=== PATIENT | female | born 1995 | race Caucasian/White ===

== ENCOUNTER 2020-04-03 20:02 | Emergency (ER) | payer OTHER ==
[2020-04-03 20:10] VITALS: BP 124/72
--- NOTE | 2020-04-03 20:37 | ED ---
General Adult HPI - General Source: patient Mode of arrival: ambulatory Limitations: no limitations <David Horta - Last Filed: 04/03/20 21:08> <Deb Talbot - Last Filed: 04/04/20 13:26> - General Chief complaint: Upper Respiratory Infection Stated complaint: Covid Symptoms Time Seen by Provider: 04/03/20 20:13 - History of Present Illness Initial comments: Patient is a 24-year-old female with history of asthma presenting to emergency Department with a chief complaint of upper respiratory symptoms. Patient states this started about 3 days ago with clear bilateral rhinorrhea and a sore throat. Patient reports that after she felt fatigued and some generalized weakness. States she also began having a nonproductive cough. She does report chills but denies any fevers. Does report taking [id number] cold and flu medication with no significant improvement in symptoms. 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 Yesterday she reports losing her sense of taste and smell. She denies any chest pain or shortness of breath (David Horta) - Related Data Allergies Allergy/AdvReac Type Severity Reaction Status Date / Time No Known Allergies Allergy Verified 04/03/20 20:10 Review of Systems ROS Other: All systems not noted in ROS Statement are negative. <David Horta - Last Filed: 04/03/20 21:08> ROS Other: All systems not noted in ROS Statement are negative. <Deb Talbot - Last Filed: 04/04/20 13:26> ROS Statement: Those systems with pertinent positive or pertinent negative responses have been documented in the HPI. Past Medical History Past Medical History: Asthma History of Any Multi-Drug Resistant Organisms: None Reported Past Surgical History: Appendectomy, Cholecystectomy, Tonsillectomy Past Psychological History: Depression Smoking Status: Never smoker Past Alcohol Use History: Occasional Past Drug Use History: None Reported <David Horta - Last Filed: 04/03/20 21:08> General Exam Limitations: no limitations General appearance: alert, in no apparent distress Head exam: Present: atraumatic, normocephalic, normal inspection Eye exam: Present: normal appearance, PERRL, EOMI Pupils: Present: normal accommodation ENT exam: Present: normal exam, normal oropharynx, mucous membranes moist, TM's normal bilaterally, normal external ear exam Neck exam: Present: normal inspection, full ROM. Absent: tenderness Respiratory exam: Present: normal lung sounds bilaterally. Absent: respiratory distress, wheezes, rales, rhonchi, stridor, chest wall tenderness Cardiovascular Exam: Present: regular rate, normal rhythm, normal heart sounds Extremities exam: Present: normal inspection, full ROM, normal capillary refill. Absent: tenderness Back exam: Present: normal inspection, full ROM. Absent: tenderness, CVA tenderness (R), CVA tenderness (L) Neurological exam: Present: alert, oriented X3, normal gait Psychiatric exam: Present: normal affect, normal mood Skin exam: Present: warm, dry, intact, normal color <David Horta - Last Filed: 04/03/20 21:08> Course Vital Signs 04/03/20 04/03/20 04/03/20 20:06 21:09 21:23 Temperature 98.0 F 98.4 F Pulse Rate 90 86 Respiratory 18 20 20 Rate Blood Pressure 124/72 O2 Sat by Pulse 100 100 Oximetry Medical Decision Making <David Horta - Last Filed: 04/03/20 21:08> <Deb Talbot - Last Filed: 04/04/20 13:26> - Medical Decision Making Patient is a 24-year-old female with history of asthma presenting to emergency department for upper respiratory symptoms. On physical examination, patient continues to have a dry cough. ENT examination unremarkable. Her lungs are clear to auscultation. X-rays unremarkable. Covert testing pending. She was advised self isolate for the next 48 hours until she receives the results of blood covert testing. She was advised to continue using her albuterol inhaler. She was also advised to take Tylenol if she develops a fever. Her vitals are stable. Strict return parameters were thoroughly discussed with patient is understanding and agreeable. Case discussed with physician. (David Horta) I was available for consultation in the emergency department. The history and physical exam were done by the midlevel provider. I was consulted for this patients care. I reviewed the case with the midlevel provider and based on their presentation of the patient, I agree with the assessment, medical decision making and plan of care as documented. Chart was dictated using [employer] dictation software. Attempts were made to correct any dictation errors however some typographical errors may persist. Patient was seen during a national state of emergency due to the Covid-19 pandemic. (Deb Talbot) Disposition Is patient prescribed a controlled substance at d/c from ED?: No Time of Disposition: 21:11 <David Horta - Last Filed: 04/03/20 21:08> <Deb Talbot - Last Filed: 04/04/20 13:26> Clinical Impression: Upper respiratory infection, Cough Disposition: HOME SELF-CARE Condition: Stable Instructions (If sedation given, give patient instructions): Upper Respiratory Infection (ED) Additional Instructions: Take Tylenol if he developed fever. Soft quarantine until you receive the results of Covid testing. Follow up with her primary care physician. Return to emergency department if symptoms worsen. Referrals: Avila Chacko MD [Primary Care Provider] - 1-2 days
--- NOTE | 2020-04-03 20:55 | XR ---
EXAMINATION TYPE: XR chest 1V portable DATE OF EXAM: 04/03/2020 COMPARISON: NONE HISTORY: Cough. Stuffy nose. TECHNIQUE: FINDINGS: Heart and mediastinum are normal. Lungs are clear. Diaphragm is normal. Bony thorax appears normal. IMPRESSION: Normal chest.
[2020-04-03 21:20] VITALS: RESP 20
[2020-04-03 21:27] VITALS: PULSE 86; TEMP 98.4
== END 2020-04-03 21:26 | disposition home or self-care (01) ==
LOC: EC 20:02
DX: J06.9 Acute upper respiratory infection, unspecified (principal); Z20.828 Contact with and (suspected) exposure to other viral communicable diseases; Z87.09 Personal history of other diseases of the respiratory system
CPT/HCPCS: 71045; 99285; U0003

== ENCOUNTER 2020-12-23 23:55 | Emergency (ER) | payer OTHER ==
[2020-12-24 00:12] VITALS: TEMP 98
[2020-12-24] MEDS ORDERED: MORPHINE SULFATE 4 MG/ML SYRINGE IV STA ×2 (00:32→02:24)
--- NOTE | 2020-12-24 01:42 | US ---
EXAM: US Pelvis Transvaginal and US Duplex Arterial/Venous of the Pelvis, Complete CLINICAL HISTORY: Pelvic pain. TECHNIQUE: Real-time transvaginal pelvic ultrasound with image documentation. Transvaginal imaging was used for better evaluation of the endometrium and adnexa. Real-time duplex ultrasound scan of the arterial and venous flow of the pelvis with color Doppler flow and spectral waveform analysis. COMPARISON: No previous study. FINDINGS: Uterus/cervix: The uterus measures 7.5 x 4.0 x 4.5 cm. Endometrial stripe measures 1.3 cm and is heterogeneous. No myometrial mass. Right ovary: Right ovary measures 2.8 x 1.6 x 1.8 cm. Good flow to both ovaries. No torsion. Left ovary: Left ovary measures 2.4 x 1.3 x 1.2 cm. Free fluid: Very minimal simple free fluid within the posterior cul-de- sac. Bladder: Empty bladder which cannot be evaluated with this probe. IMPRESSION: 1. Minimal thickening and heterogeneity of the endometrial stripe most likely related to phase of menstruation appeared 2. Good flow to both ovaries. 3. Very minimal free fluid within the posterior cul-de-sac.
[2020-12-24 01:55] LABS: Basophils # (A) 0.1 k/uL (0-0.2); Basophils % (A) 1 %; Eosinophils # (A) 0.2 k/uL (0-0.7); Eosinophils % (A) 3 %; HCT 40.8 % (34.0-46.0); HGB 13.5 gm/dL (11.4-16.0); Lymphocytes # (A) 2.1 k/uL (1.0-4.8); Lymphocytes % (A) 26 %; MCH 29.8 pg (25.0-35.0); MCHC 33.2 g/dL (31.0-37.0); MCV 89.7 fL (80.0-100.0); Mean Platelet Volume 9.7; Monocytes # (A) 0.4 k/uL (0-1.0); Monocytes % (A) 4 %; Neutrophils # (A) 5.3 k/uL (1.3-7.7); Neutrophils % (A) 65 %; Platelet Count 188 k/uL (150-450); RBC 4.55 m/uL (3.80-5.40); RDW 12.6 % (11.5-15.5); WBC 8.3 k/uL (3.8-10.6)
[2020-12-24 02:08] LABS: ALT 12 U/L (4-34); AST 20 U/L (14-36); African American GFR (CKD) >90 (>60 ml/min/1.73 sqM); Albumin 4.9 g/dL (3.5-5.0); Alkaline Phosphatase 62 U/L (38-126); Amylase 55 U/L (30-110); Anion Gap 9 mmol/L; Blood Urea Nitrogen 8 mg/dL (7-17); Carbon Dioxide 27 mmol/L (22-30); Chloride 103 mmol/L (98-107); Glucose 98 mg/dL (74-99); Lipase 104 U/L (23-300); Non-African American GFR(CKD) >90 (>60 ml/min/1.73 sqM); Sodium 139 mmol/L (137-145); Total Bilirubin 0.2 mg/dL (0.2-1.3); Total Protein 7.2 g/dL (6.3-8.2)
[2020-12-24 02:15] LABS: Appearance,Urine Clear (Clear); Bilirubin,Urine Negative (Negative); Blood,Urine Small (Negative); Color,Urine Colorless; Glucose,Urine (UA) Negative (Negative); Ketones,Urine Negative (Negative); Leukocyte Esterase,Urine Negative (Negative); Nitrite,Urine Negative (Negative); PH, Urine 6.5 (5.0-8.0); Protein,Urine Negative (Negative); RBC,Urine 1 /hpf (0-5); Specific Gravity,Urine 1.004 (1.001-1.035); Squamous Epithelial Cell,Urine 1 /hpf (0-4); Urobilinogen,Urine <2.0 mg/dL (<2.0); WBC,Urine 1 /hpf (0-5)
--- NOTE | 2020-12-24 02:27 | ED ---
Female Urogenital HPI - General Chief complaint: Vaginal Bleeding Stated complaint: Lower abd pain Time Seen by Provider: 12/24/20 00:17 Source: patient Mode of arrival: ambulatory Limitations: no limitations - History of Present Illness Initial comments: Patient is 25-year-old woman presenting with complaint that she feels like she is having a second menstrual period this month which would be greatly abnormal for her. She started having lower abdomen and low back cramps as well as vaginal bleeding. She states she was concerned because the bleeding appeared to be bright red. Patient had called her primary mill roller Dr. Jacobs, who was going to have her in for ultrasound but then her cramping had worsened tonight. Patient states no risk factors for STI. The symptoms did worsen after intercourse MD Complaint: vaginal bleeding Onset/Timin -: days(s) Location: suprapubic Radiation: non-radiating Severity: mild Quality: cramping Consistency: constant Improves with: none Worsens with: none Last Menstrual Period: 12/07/20 Patient : No Associated Symptoms: vaginal bleeding - Related Data Previous Rx's Medication Instructions Recorded HYDROcodone/APAP 5-325MG [[place] 1 tab PO Q6HR PRN 3 Days #12 tab 12/24/20 5-325] Allergies Allergy/AdvReac Type Severity Reaction Status Date / Time No Known Allergies Allergy Verified 12/24/20 00:12 Review of Systems ROS Statement: Those systems with pertinent positive or pertinent negative responses have been documented in the HPI. ROS Other: All systems not noted in ROS Statement are negative. Constitutional: Denies: fever, chills Respiratory: Denies: cough, dyspnea Cardiovascular: Denies: chest pain, palpitations Gastrointestinal: Reports: abdominal pain. Denies: nausea, vomiting, diarrhea, constipation Genitourinary: Reports: abnormal menses. Denies: dysuria, hematuria, discharge Musculoskeletal: Denies: back pain Skin: Denies: rash Neurological: Denies: headache, weakness, numbness Past Medical History Past Medical History: Asthma History of Any Multi-Drug Resistant Organisms: None Reported Past Surgical History: Appendectomy, Cholecystectomy, Tonsillectomy Past Psychological History: Depression Smoking Status: Never smoker Past Alcohol Use History: Occasional Past Drug Use History: None Reported General Exam Limitations: no limitations General appearance: alert, in no apparent distress Head exam: Present: atraumatic, normocephalic Eye exam: Present: normal appearance Respiratory exam: Present: normal lung sounds bilaterally. Absent: respiratory distress, wheezes, rales, rhonchi, stridor Cardiovascular Exam: Present: regular rate, normal rhythm, normal heart sounds. Absent: systolic murmur, diastolic murmur, rubs, gallop GI/Abdominal exam: Present: soft. Absent: distended, tenderness, guarding, durga ound, rigid, organomegaly, mass External exam: Present: normal external exam Speculum exam: Present: normal speculum exam. Absent: erythema, vaginal discharge, cervical discharge, vaginal bleeding By manual exam: Present: normal by manual exam. Absent: cervical motion tenderness, adnexal tenderness, adnexal mass, uterine enlargement, uterine tenderness Extremities exam: Present: normal inspection, normal capillary refill. Absent: pedal edema, calf tenderness Back exam: Present: normal inspection. Absent: CVA tenderness (R), CVA tenderness (L) Neurological exam: Present: alert Skin exam: Present: warm, dry, intact, normal color. Absent: rash Course Vital Signs 12/24/20 12/24/20 00:10 02:46 Temperature 98.0 F Pulse Rate 94 82 Respiratory 18 16 Rate Blood Pressure 146/92 132/72 O2 Sat by Pulse 100 100 Oximetry Medical Decision Making - Medical Decision Making Patient is 25-year-old woman presenting for evaluation of low abdominal cramping and vaginal bleeding. On the exam, there is no active cervical bleeding. Small amount of dark blood present. The patient declined empiric STI treatment, stating she is going to follow with Dr. Jacobs and in addition she does not believe she has any current risk factors for STI. - Lab Data Result diagrams: 12/24/20 01:33 12/24/20 01:33 Lab Results 12/24/20 12/24/20 12/24/20 Range/Units 01:33 01:33 01:33 WBC 8.3 (3.8-10.6) k/uL RBC 4.55 (3.80-5.40) m/uL Hgb 13.5 (11.4-16.0) gm/dL Hct 40.8 (34.0-46.0) % MCV 89.7 (80.0-100.0) fL MCH 29.8 (25.0-35.0) pg MCHC 33.2 (31.0-37.0) g/dL RDW 12.6 (11.5-15.5) % Plt Count 188 (150-450) k/uL MPV 9.7 Neutrophils % 65 % Lymphocytes % 26 % Monocytes % 4 % Eosinophils % 3 % Basophils % 1 % Neutrophils # 5.3 (1.3-7.7) k/uL Lymphocytes # 2.1 (1.0-4.8) k/uL Monocytes # 0.4 (0-1.0) k/uL Eosinophils # 0.2 (0-0.7) k/uL Basophils # 0.1 (0-0.2) k/uL Sodium (137-145) mmol/L Potassium (3.5-5.1) mmol/L Chloride (98-107) mmol/L Carbon Dioxide (22-30) mmol/L Anion Gap mmol/L BUN (7-17) mg/dL Creatinine (0.52-1.04) mg/dL Est GFR (CKD-EPI)AfAm (>60 ml/min/1.73 sqM) Est GFR (CKD-EPI)NonAf (>60 ml/min/1.73 sqM) Glucose (74-99) mg/dL Plasma Lactic Acid Francisco (0.7-2.0) mmol/L Calcium (8.4-10.2) mg/dL Total Bilirubin (0.2-1.3) mg/dL AST (14-36) U/L ALT (4-34) U/L Alkaline Phosphatase (38-126) U/L Total Protein (6.3-8.2) g/dL Albumin (3.5-5.0) g/dL Amylase (30-110) U/L Lipase (23-300) U/L Urine Color Colorless Urine Appearance Clear (Clear) Urine pH 6.5 (5.0-8.0) Ur Specific [place] 1.004 (1.001-1.035) Urine Protein Negative (Negative) Urine Glucose (UA) Negative (Negative) Urine Ketones Negative (Negative) Urine Blood Small H (Negative) Urine Nitrite Negative (Negative) Urine Bilirubin Negative (Negative) Urine Urobilinogen <2.0 (<2.0) mg/dL Ur Leukocyte Esterase Negative (Negative) Urine RBC 1 (0-5) /hpf Urine WBC 1 (0-5) /hpf Ur Squamous Epith Cells 1 (0-4) /hpf Urine HCG, Qual Not Detected (Not Detectd) 12/24/20 12/24/20 Range/Units 01:33 01:33 WBC (3.8-10.6) k/uL RBC (3.80-5.40) m/uL Hgb (11.4-16.0) gm/dL Hct (34.0-46.0) % MCV (80.0-100.0) fL MCH (25.0-35.0) pg MCHC (31.0-37.0) g/dL RDW (11.5-15.5) % Plt Count (150-450) k/uL MPV Neutrophils % % Lymphocytes % % Monocytes % % Eosinophils % % Basophils % % Neutrophils # (1.3-7.7) k/uL Lymphocytes # (1.0-4.8) k/uL Monocytes # (0-1.0) k/uL Eosinophils # (0-0.7) k/uL Basophils # (0-0.2) k/uL Sodium 139 (137-145) mmol/L Potassium 4.0 (3.5-5.1) mmol/L Chloride 103 (98-107) mmol/L Carbon Dioxide 27 (22-30) mmol/L Anion Gap 9 mmol/L BUN 8 (7-17) mg/dL Creatinine 0.57 (0.52-1.04) mg/dL Est GFR (CKD-EPI)AfAm >90 (>60 ml/min/1.73 sqM) Est GFR (CKD-EPI)NonAf >90 (>60 ml/min/1.73 sqM) Glucose 98 (74-99) mg/dL Plasma Lactic Acid Francisco <0.5 L (0.7-2.0) mmol/L Calcium 10.0 (8.4-10.2) mg/dL Total Bilirubin 0.2 (0.2-1.3) mg/dL AST 20 (14-36) U/L ALT 12 (4-34) U/L Alkaline Phosphatase 62 (38-126) U/L Total Protein 7.2 (6.3-8.2) g/dL Albumin 4.9 (3.5-5.0) g/dL Amylase 55 (30-110) U/L Lipase 104 (23-300) U/L Urine Color Urine Appearance (Clear) Urine pH (5.0-8.0) Ur Specific [place] (1.001-1.035) Urine Protein (Negative) Urine Glucose (UA) (Negative) Urine Ketones (Negative) Urine Blood (Negative) Urine Nitrite (Negative) Urine Bilirubin (Negative) Urine Urobilinogen (<2.0) mg/dL Ur Leukocyte Esterase (Negative) Urine RBC (0-5) /hpf Urine WBC (0-5) /hpf Ur Squamous Epith Cells (0-4) /hpf Urine HCG, Qual (Not Detectd) Disposition Clinical Impression: Vaginal bleeding Disposition: HOME SELF-CARE Condition: Good Instructions (If sedation given, give patient instructions): Dysfunctional Uter ine Bleeding (ED), Pelvic Pain in Women (ED) Prescriptions: HYDROcodone/APAP 5-325MG [[place] 5-325] 1 tab PO Q6HR PRN 3 Days #12 tab PRN Reason: Pain Is patient prescribed a controlled substance at d/c from ED?: No Referrals: None,Stated [Primary Care Provider] - 1-2 days
[2020-12-24 02:46] VITALS: BP 132/72; PULSE 82; RESP 16
== END 2020-12-24 02:50 | disposition home or self-care (01) ==
LOC: EC 23:55
DX: N93.9 Abnormal uterine and vaginal bleeding, unspecified (principal); R10.30 Lower abdominal pain, unspecified; J45.909 Unspecified asthma, uncomplicated; F32.9 Major depressive disorder, single episode, unspecified
CPT/HCPCS: 36415; 80053; 82150; 83605; 83690; 85025; 81001; 81025; 87491; 87591; 93975; 76830; 99284; 96374; 96376; J2270

== ENCOUNTER → 2020-12-28 | Outpatient (CLI) | payer OTHER ==
--- NOTE | 2020-12-28 15:40 | US ---
EXAMINATION TYPE: US pelvic complete DATE OF EXAM: 12/28/2020 COMPARISON: 12/24/2020 CLINICAL HISTORY: N93.0Postcoital and contact ble, R10.2 pelvic pain. pain and bleeding during and af ter intercourse, TECHNIQUE: OBTA. Transabdominal sonographic images of the pelvis were acquired. Transvaginal sonog raphic images were medically necessary to better assess the following anatomy: offered, patient refus ed Date of LMP: 12/08/2020 EXAM MEASUREMENTS: Uterus: 8.0 x 5.7 x 4.5 cm Endometrial Stripe: 1.0 cm Right Ovary: 3.2 x 2.1 x 1.4 cm Left Ovary: 3.1 x 2.0 x 2.9 cm 1. Uterus: Retroverted wnl 2. Endometrium: wnl 3. Right Ovary: wnl 4. Left Ovary: wnl 5. Bilateral Adnexa: wnl 6. Posterior cul-de-sac: free fluid IMPRESSION: Free fluid in the pelvis is likely physiologic.
== END | disposition home or self-care (01) ==
LOC: RADUSWWP 14:16
PROVIDERS: ATTEND Obstetrics & Gynecology
DX: N93.0 Postcoital and contact bleeding (principal)
CPT/HCPCS: 76856

== ENCOUNTER 2021-11-08 05:39 | Inpatient (IN) | payer OTHER ==
--- NOTE | 2021-11-07 12:35 | P.HPOB ---
History of Present Illness H&P Date: 11/07/21 Chief Complaint: Requested induction of labor. This patient is a pleasant 26-year-old 4 para 2 female estimated date of confinement 11/10/2021 estimated gestational age 39-5/7 weeks who presents to labor and delivery for requested induction of labor. Patient's care was initially with Dr. Royal however she transferred to sd at 31 weeks after his departure. Patient's care has been uncomplicated however she did have cCOVID at 13 weeks. Patient also has had growth ultrasounds which shows macrosomia. Most recent ultrasound showed the baby 9 lbs. 1 oz. Patient and I discussed the size of the baby and I did discuss optional with her however she has had a previous baby that was 9-1/2 pounds and had no problems with this delivery. Patient has declined section and desires induction at this time. Review of Systems Genitourinary: Reports Menstruation: Reports amenorrhea Past Medical History Past Medical History: Asthma History of Any Multi-Drug Resistant Organisms: None Reported Past Surgical History: Appendectomy, Cholecystectomy, Tonsillectomy Past Anesthesia/Blood Transfusion Reactions: No Reported Reaction Past Psychological History: Depression Smoking Status: Never smoker Past Alcohol Use History: Occasional Past Drug Use History: None Reported Medications and Allergies Home Medications Medication Instructions Recorded Confirmed Type HYDROcodone/APAP 5-325MG [[place] 1 tab PO Q6HR PRN 3 Days #12 tab 12/24/20 Rx 5-325] Allergies Allergy/AdvReac Type Severity Reaction Status Date / Time No Known Allergies Allergy Verified 12/24/20 00:12 Exam - OBG Physical Exam Abdomen: bowel sounds normal, no diffuse tenderness, no bruit present, no guarding noted, no hepatomegaly, no splenomegaly, no mass Vulva: both: normal Vagina: normal moisture, no discharge Cervix: no lesion (Cervix the office is 1 cm and thick.), no discharge Uterus: enlarged (Fundal height 40 cm) Results labs show she is oh positive, rubella immune, RPR nonreactive, hepatitis B is negative, HIV is nonreactive, Glucola was normal, most recent ultrasound showed the baby 9 lbs. 1 oz. Group B strep was positive. Assessment and Plan Assessment: This patient is a pleasant 26-year-old 4 para 2 female estimated gestational age 39-5/7 weeks' gestation who is admitted to labor and delivery for requested induction of labor. Estimated weight is approximately 9 and 9-1/2 pounds and I did discuss optional with this patient due to macrosomia however she's had a previous baby in this way range within delivered without a problem and has declined section. She does wish to proceed with induction. She also has a positive group B strep culture. Plan is antibiotic prophylaxis and Pitocin induction of labor per protocol. We anticipate vaginal delivery (1) 39 weeks gestation of Status: Acute Code(s): Z3A.39 - 39 WEEKS GESTATION OF SNOMED Code(s): 54049104 (2) macrosomia Status: Acute Code(s): O36.60X0 - MATERNAL CARE FOR EXCESS GROWTH, UNSP TRIMESTER, UNSP SNOMED Code(s): 56060227 (3) Group B streptococcal carriage complicating Status: Acute Code(s): O99.820 - STREPTOCOCCUS B CARRIER STATE COMPLICATING SNOMED Code(s): 266269821881936 (4) Elective induction of labor planned Status: Acute Code(s): QIG5587 - SNOMED Code(s): 114453726
[2021-11-08] MEDS ORDERED: TERBUTALINE 1 MG/ML VIAL SQ PRN (05:53)
[2021-11-08] MEDS ORDERED: OXYTOCIN 10 UNIT/ML 1 ML VIAL IM PRN (05:53)
[2021-11-08] MEDS ORDERED: METHYLERGONOVINE 0.2 MG/ML 1 ML AMP IM PRN (05:53)
[2021-11-08] MEDS ORDERED: CARBOPROST TROMETHAMINE 250 MCG/ML 1 ML AMP IM PRN (05:53)
[2021-11-08] MEDS ORDERED: LIDOCAINE 1% (PF) 10 MG/ML (30 ML SDV) SQ PRN (05:53)
[2021-11-08] MEDS ORDERED: AMPICILLIN 2,000 MG in SODIUM CHLORIDE 0.9% 100 ML IVPB STA (05:53)
[2021-11-08] MEDS ORDERED: OXYTOCIN 30 UNITS/500 ML NS 30 UNIT in SALINE 1 500ML.BAG IV SCH (05:53)
[2021-11-08 06:12] LABS: Basophils # (A) 0.1 k/uL (0-0.2); Basophils % (A) 1 %; Eosinophils # (A) 0.2 k/uL (0-0.7); Eosinophils % (A) 2 %; HCT 37.9 % (34.0-46.0); HGB 12.3 gm/dL (11.4-16.0); Lymphocytes # (A) 1.5 k/uL (1.0-4.8); Lymphocytes % (A) 18 %; MCH 30.1 pg (25.0-35.0); MCHC 32.4 g/dL (31.0-37.0); Mean Platelet Volume 10.5; Monocytes # (A) 0.5 k/uL (0-1.0); Monocytes % (A) 6 %; Neutrophils # (A) 6.3 k/uL (1.3-7.7); Neutrophils % (A) 72 %; Platelet Count 155 k/uL (150-450); RBC 4.08 m/uL (3.80-5.40); RDW 12.5 % (11.5-15.5); WBC 8.7 k/uL (3.8-10.6)
[2021-11-08] MEDS: LACTATED RINGERS 1,000 ML IV SCH ×3 (06:16→15:01)
[2021-11-08] MEDS ORDERED: BUTORPHANOL 1 MG/ML 1 ML VIAL IV PRN (09:41)
[2021-11-08] MEDS: AMPICILLIN 1,000 MG in SODIUM CHLORIDE 0.9% 50 ML IVPB SCH ×2 (10:39→14:52)
[2021-11-08] MEDS ORDERED: ROPIVACAINE 100 MG, fentaNYL (PF). 200 MCG in SODIUM CHLORIDE 0.9% 76 ML EPIDURAL ONE (12:37)
[2021-11-08] MEDS: OXYTOCIN 30 UNITS/500 ML NS 30 UNIT in SALINE 1 500ML.BAG IV SCH ×2 (17:26→18:07)
[2021-11-08] MEDS ORDERED: LANOLIN CREAM 5 GM TUBE TOPICAL PRN (17:34)
[2021-11-08] MEDS ORDERED: BENZOCAINE/MENTHOL SPRAY 1 GM/SPRAY AEROSOL TOPICAL PRN (17:34)
[2021-11-08] MEDS ORDERED: HYDROCORTISONE 2.5% RECTAL CREAM 30 GM TUBE RECTAL PRN (17:34)
[2021-11-08] MEDS ORDERED: diphenhydrAMINE 50 MG/ML 1 ML VIAL IVP PRN (17:34)
[2021-11-08] MEDS ORDERED: SIMETHICONE 80 MG CHEWABLE PO PRN (17:34)
[2021-11-08] MEDS ORDERED: ZOLPIDEM 5 MG TAB PO PRN (17:34)
[2021-11-08] MEDS ORDERED: diphenhydrAMINE 25 MG CAP PO PRN (17:34)
[2021-11-08] MEDS ORDERED: bisacodyL 10 MG SUPP RECTAL PRN (17:34)
--- NOTE | 2021-11-08 17:55 | P.PROBDLV ---
Vaginal Delivery Note - . Vaginal Delivery Note: Normal vaginal delivery viable male infant Apgars 8 and 9 delivery time is 1722 hrs. Please see dictated H&P for intimate details of this patient's admission. Brief summary this is a pleasant 26-year-old 4 para 2 female estimated gestational age 39-5/7 weeks who presents to labor and delivery for requested induction of labor. On admission patient is 2 cm dilated has artificial rupture membranes for clear fluid. Labor is induced with Pitocin per protocol. Patient's labor progresses and she does get a dose of Stadol and then an epidural for pain control. Patient also received antibiotics in labor due to positive group B strep culture. Patient progressed and was 6 cm for a bit but then rapidly progressed to complete. Patient pushes the head to the perineum approximately 5 times and pushed the head over top of the intact perineum. Mouth and nares are bulb suctioned. Infant's head is straight occiput anterior presentation. There is a nuchal cord which is easily reduced. With gentle downward traction we then have delivery the anterior and posterior shoulder and rest this 's body. This is a vigorous viable male infant Apgars are 8 and 9 delivery time is 1722 hrs. After delivery of the , the infant is laid on the mother's abdomen. After the cord is done pulsating is doubly clamped and then cut. It appears to be trivascular. The placenta is then spontaneously delivered intact. Estimated blood loss is approximately 200 mL. Inspection of the perineum shows a second-degree laceration midline. She did get boggy and therefore I gave her a bolus of Pitocin and one dose of Methergine. This appeared to stop the bleeding. The second-degree laceration is then repaired with 3-0 Vicryl in the usual fashion excellent reapproximation is noted. All counts are correct 3. There are no complications. Infant and mother stable delivery room.
[2021-11-08] MEDS: IBUPROFEN 600 MG TAB PO PRN (18:17)
[2021-11-08] MEDS: SENNOSIDES-DOCUSATE SODIUM 1 EACH TAB PO SCH (18:18)
[2021-11-08] MEDS: ACETAMINOPHEN TAB 325 MG TAB PO PRN (22:02)
[2021-11-09] MEDS: IBUPROFEN 600 MG TAB PO PRN ×3 (00:33→16:00)
[2021-11-09] MEDS: ACETAMINOPHEN TAB 325 MG TAB PO PRN ×2 (05:13→12:07)
--- NOTE | 2021-11-09 06:10 | P.PNOBGVD ---
Subjective - Subjective Patient reports: Reports appetite normal, Reports voiding normally, Reports pain well controlled, Reports ambulating normally : doing well Objective - Latest Vital Signs Latest vital signs: Vital Signs Temp Pulse Resp BP Pulse Ox 11/09/21 04:25 97.7 F 80 16 119/77 98 11/09/21 00:00 97.4 F L 92 16 113/73 11/08/21 20:00 80 16 115/58 11/08/21 19:46 97.7 F 80 16 115/58 11/08/21 19:16 97.7 F 84 16 118/55 11/08/21 19:00 78 16 119/58 11/08/21 18:46 71 16 112/57 11/08/21 18:31 69 16 110/61 11/08/21 18:18 79 16 103/60 11/08/21 18:01 70 16 111/55 11/08/21 17:46 72 16 101/55 Intake and Output 11/08/21 11/08/21 11/09/21 14:59 22:59 06:59 Intake Total 1200 740.317 Output Total 1276 Balance 1200 -535.683 Intake: IV 1200 Intake, IV Titration 740.317 Amount Oxytocin 30 Units/500 ml 23.867 Ns 30 unit In Saline 1 500ml.bag @ Per Protocol IV .Q0M DELILAH Rx#:[id number] Oxytocin 30 Units/500 ml 716.450 Ns 30 unit In Saline 1 500ml.bag @ Per Protocol IV .Q0M DELILAH Rx#:[id number] Output: Urine 250 Estimated Blood Loss 200 Output, Quantitative 826 Blood Loss Other: # Voids 1 1 - Exam Lungs: bilateral: normal Chest: Normal S1, Normal S2 Extremities: Present: normal Abdomen: Present: normal appearance, soft Uterus: Present: normal, firm Assessment and Plan Assessment: day #1. Patient is resting without complaints and wishes to go home. Vital signs are stable and she is afebrile. Uterus is firm nontender and she is having normal lochia. My impression this is a normal course. Plan is to continue routine care and discharge home later today (1) 39 weeks gestation of Current Visit: No Status: Acute Code(s): Z3A.39 - 39 WEEKS GESTATION OF SNOMED Code(s): 56379403 (2) macrosomia Current Visit: No Status: Acute Code(s): O36.60X0 - MATERNAL CARE FOR EXCESS GROWTH, UNSP TRIMESTER, UNSP SNOMED Code(s): 77047645 (3) Group B streptococcal carriage complicating Current Visit: No Status: Acute Code(s): O99.820 - STREPTOCOCCUS B CARRIER STATE COMPLICATING SNOMED Code(s): 038574260775486 (4) Elective induction of labor planned Current Visit: No Status: Acute Code(s): OFB6369 - SNOMED Code(s): 838895338
--- NOTE | 2021-11-09 06:16 | P.DS ---
Providers Date of admission: 11/08/21 05:39 Expected date of discharge: 11/09/21 Attending physician: Polo Barahona Primary care physician: Stated None - Discharge Diagnosis(es) (1) 39 weeks gestation of Current Visit: No Status: Acute (2) macrosomia Current Visit: No Status: Acute (3) Group B streptococcal carriage complicating Current Visit: No Status: Acute (4) Elective induction of labor planned Current Visit: No Status: Acute Hospital Course: Please see dictated H&P for intimate details of this patient's admission. Brief summary this is a pleasant 26-year-old 4 para 2 female estimated gestational age 39-5/7 weeks who presents to labor and delivery for requested induction of labor. Patient is uncomplicated induction of labor goes on to have a vaginal delivery viable male . Please see dictated delivery note of note patient's weight was 9 lbs. 12 oz. Patient had brief uterine atony which responded to Methergine otherwise normal lochia. day 1 patient's feeling well she wishes to go home. Patient's felt be stable for discharge home follow up with me in 6 weeks. Procedures: Induction of labor normal vaginal delivery Plan - Discharge Summary New Discharge Prescriptions: New Ibuprofen [Motrin] 600 mg PO Q6HR PRN #30 tab PRN Reason: Mild Pain (Scale 1 To 3) No Action Pnv,Calcium 72/Iron/Folic Acid [ Plus Tablet] 1 each PO DAILY Discharge Medication List Pnv,Calcium 72/Iron/Folic Acid [ Plus Tablet] 1 each PO DAILY 11/08/21 [History] Ibuprofen [Motrin] 600 mg PO Q6HR PRN #30 tab 11/09/21 [Rx] Follow up Appointment(s)/Referral(s): Polo Barahona MD [STAFF PHYSICIAN] - 12/22/21 3:00 pm Patient Instructions/Handouts: Vaginal Delivery (DC) Activity/Diet/Wound Care/Special Instructions: No intercourse or anything per vagina for 6 weeks. Please call if any fever, chills, excessive vaginal bleeding, and/or abdominal pain Discharge Disposition: HOME SELF-CARE
[2021-11-09 07:40] LABS: Basophils % (A) 0 %; Eosinophils # (A) 0.1 k/uL (0-0.7); Eosinophils % (A) 2 %; HCT 30.6 % (34.0-46.0); HGB 10.1 gm/dL (11.4-16.0); Lymphocytes # (A) 1.3 k/uL (1.0-4.8); Lymphocytes % (A) 15 %; MCH 31.7 pg (25.0-35.0); MCV 96.1 fL (80.0-100.0); Mean Platelet Volume 10.7; Monocytes # (A) 0.5 k/uL (0-1.0); Monocytes % (A) 6 %; Neutrophils # (A) 7.1 k/uL (1.3-7.7); Neutrophils % (A) 77 %; Platelet Count 131 k/uL (150-450); RBC 3.18 m/uL (3.80-5.40); RDW 12.6 % (11.5-15.5); WBC 9.2 k/uL (3.8-10.6)
[2021-11-09] MEDS: SENNOSIDES-DOCUSATE SODIUM 1 EACH TAB PO SCH (08:49)
[2021-11-09 10:41] VITALS: RESP 18
[2021-11-09 16:34] VITALS: BP 110/69; PULSE 69; TEMP 97.9
== END 2021-11-09 18:10 | disposition home or self-care (01) | DRG 807 ==
LOC: 4FBP 05:39
PROVIDERS: ADMIT Obstetrics & Gynecology; ATTEND Obstetrics & Gynecology
PROC: 10E0XZZ Delivery of Products of Conception, External Approach (ICD-10-PCS; principal; 2021-11-08)
PROC: 0KQM0ZZ Repair Perineum Muscle, Open Approach (ICD-10-PCS; 2021-11-08)
PROC: 10907ZC Drainage of Amniotic Fluid, Therapeutic from Products of Conception, Via Natural or Artificial Opening (ICD-10-PCS; 2021-11-08)
PROC: 3E033VJ Introduction of Other Hormone into Peripheral Vein, Percutaneous Approach (ICD-10-PCS; 2021-11-08)
PROC: 4A0HXCZ Measurement of Products of Conception, Cardiac Rate, External Approach (ICD-10-PCS; 2021-11-08)
DX: O36.63X0 Maternal care for excessive fetal growth, third trimester, not applicable or unspecified (principal); Z37.0 Single live birth; O99.824 Streptococcus B carrier state complicating childbirth; O70.1 Second degree perineal laceration during delivery; O69.81X0 Labor and delivery complicated by cord around neck, without compression, not applicable or unspecified; F32.A Depression, unspecified; J45.909 Unspecified asthma, uncomplicated; O62.2 Other uterine inertia; O99.344 Other mental disorders complicating childbirth; O99.52 Diseases of the respiratory system complicating childbirth; Z3A.39 39 weeks gestation of pregnancy; Z90.49 Acquired absence of other specified parts of digestive tract
CPT/HCPCS: 85025; 86850; 86900; 86901

== ENCOUNTER 2022-02-13 06:15 | Day surgery (SDC) | payer OTHER ==
[2022-02-08 13:03] VITALS: BMI 28.6
--- NOTE | 2022-02-12 07:57 | P.HPOB ---
History of Present Illness H&P Date: 02/12/22 Chief Complaint: Desires permanent sterilization This patient is a pleasant 26 yr female who is status post vaginal delivery of her 3rd baby this year who requests laparoscopic bilateral fallopian tube cauterization for permanent sterilization. I have discussed all other options with her including male sterilization and this is the method she has chosen. Past Medical History Past Medical History: Asthma, GERD/Reflux, Liver Disease Additional Past Medical History / Comment(s): Hx Hepatitis C 2017. History of Any Multi-Drug Resistant Organisms: None Reported Past Surgical History: Appendectomy, Cholecystectomy, Tonsillectomy Past Anesthesia/Blood Transfusion Reactions: No Reported Reaction, Motion Sickness Past Psychological History: Anxiety, Depression Smoking Status: Never smoker Past Alcohol Use History: Occasional Additional Past Alcohol Use History / Comment(s): Quit vaping a yr ago. Past Drug Use History: Marijuana Additional Drug Use History / Comment(s): Occassional edible, aware no use 24 hrs prior to procedure. - Past Family History Daughter(s) Family Medical History: No Reported History Medications and Allergies Home Medications Medication Instructions Recorded Confirmed Type Vit No.180/Iron/Folic 1 each PO DAILY 11/08/21 02/08/22 History [ Plus Tablet] Allergies Allergy/AdvReac Type Severity Reaction Status Date / Time No Known Allergies Allergy Verified 02/08/22 12:54 Exam - OBG Physical Exam Abdomen: bowel sounds normal, no diffuse tenderness, no bruit present, no guarding noted, no hepatomegaly, no splenomegaly, no mass Vulva: both: normal Vagina: normal moisture, no discharge Cervix: no lesion, no discharge Uterus: normal size, normal contour Assessment and Plan Assessment: This is a pleasant 26 yr female who presents requesting permanent sterilization. Plan is laparoscopic bilateral fallopian tube cauterization. I have discussed this procedure with Arielle including the fact that it is considered permanent, however there is a failure rate of <11/999. If she did become a ~50% chance of a tubal/ectopic . She understands the risks of the procedure: infection, bleeding, possible injury to bowel/bladder/vessels and/or other organs. She understand that she is at increase risk due to history of previous laparoscopic procedures. She also understands that this procedure is elective and other options exist. All of her questions were answered and a written consent obtained. (1) Family planning Status: Acute Code(s): Z30.09 - ENCOUNTER FOR OTH GENERAL CNSL AND ADVICE ON CONTRACEPTION SNOMED Code(s): 069192771
[~2022-02-13 06:15] MED LIST: DEXAMETHASONE SOD PHOSPHATE 4 MG/ML 1 ML VIAL IV ONE; LACTATED RINGERS 1,000 ML IV SCH; LIDOCAINE 1% (10MG/ML) FOR IV START INTRADERMA PRN; ONDANSETRON 4 MG/2 ML VIAL IVP ONE; Pre Op ABX Message 1 EACH MISC MISCELLANE ONE; SCOPOLAMINE 1 MG/72 HR PATCH TRANSDERM ONE
[2022-02-13] MEDS ORDERED: HYDROmorphone 0.5 MG/0.5 ML SYRINGE IVP PRN (07:00)
[2022-02-13] MEDS ORDERED: HYDROmorphone (PF) 1 MG/ML ONE (07:22)
[2022-02-13] MEDS ORDERED: GLYCOPYRROLATE 0.2 MG/ML 2 ML VIAL ONE (07:22)
[2022-02-13] MEDS ORDERED: LIDOCAINE 2% INJ 20 MG/ML (2 ML VIAL) ONE (07:22)
[2022-02-13] MEDS ORDERED: SUCCINYLCHOLINE CHLORIDE 200 MG/10 ML VIAL IV ONE (07:22)
[2022-02-13] MEDS ORDERED: fentaNYL (PF) 50 MCG/ML 2 ML AMP ONE (07:22)
[2022-02-13] MEDS ORDERED: KETOROLAC 15 MG/ML 1 ML VIAL ONE (07:22)
[2022-02-13] MEDS ORDERED: MIDAZOLAM 2 MG/2 ML VIAL ONE (07:22)
[2022-02-13] MEDS ORDERED: NEOSTIGMINE 1 MG/ML 10 ML VIAL ONE (07:22)
[2022-02-13] MEDS ORDERED: PROPOFOL 10 MG/ML 20 ML VIAL IV ONE (07:22)
[2022-02-13] MEDS ORDERED: ROCURONIUM 10 MG/ML (5 ML VIAL) IV ONE (07:22)
[2022-02-13] MEDS ORDERED: BUPIVACAINE (PF) 0.5% 30 ML VIAL SQ ONE ×2 (07:58)
[2022-02-13] MEDS ORDERED: LACTATED RINGERS 1,000 ML IV ONE (08:04)
--- NOTE | 2022-02-13 08:14 | P.OP ---
Date of Procedure: 02/13/22 Preoperative Diagnosis: Multi parity desires permanent sterilization Postoperative Diagnosis: Same Procedure(s) Performed: Laparoscopic bilateral fallopian tube cauterization Anesthesia: LUCIENA Surgeon: Polo Barahona Estimated Blood Loss (ml): 10 Urine output (ml): 20 Pathology: none sent Condition: stable Disposition: PACU Indications for Procedure: Please see dictated H&P for intimate details of this patient's admission. Brief summary this pleasant 26-year-old multiparous patient status post vaginal deliveries third viable infant earlier this year who is requesting permanent sterilization for control. Patient I discussed options for control and this is enough that she and her partner chosen. She understands it is considered permanent however there is a failure rate of less than 5 per thousand procedures done. She understands if she does become she is a 50% chance of a tubal or an ectopic . Patient also understands that surgery itself and apparently has risks: Risks of infection, bleeding, possible injury bowel, bladder, vessels, and/or other organs. All the patient's questions are answered and a written consent is obtained. Operative Findings: This patient normal appearing pelvis Description of Procedure: This patient is taken to the operating room where she is laid in the supine position. She subsequently undergoes general endotracheal anesthesia without incident. An adequate level of anesthesia she's placed in the dorsal lithotomy position. His vaginal, perineal, abdominal prep and drape. First good on below placed a speculum into the vagina and visualize the cervix. An Allis clamp was attached to the anterior lip of the cervix and acorn cannula is attached to the Allis clamp and placed into the endocervix. The bladder is then drained for clear urine and this catheter is attached to the Allis clamp. I then changed gloves and go above. I make a 1 cm infraumbilical incision. Through this a 10 mm bladed lists optical trochars placed under visualization. With peritoneal placement confirmed pneumoperitoneum is created to 12 mm of carbon dioxide gas. Patient placed in some Trendelenburg. Approximately 2 finger breaths above the symphysis pubis a 5 mm incision made and a 5 mm bladed lists trochar placed under direct visualization. Using a blunt probe I visualize the uterus fallopian tubes and ovaries the pelvis and all appears normal. Using bipolar cautery then grasped the left fallopian tube approximately 4 cm from its cornual Oxleyinsertion in 1-2 cm segment of the tube is completely cauterized as demarcated by the volt meter similar technique is done on the right side with similar results. With this done the final inspection is done the lower trochars removed good hemostasis is noted. Pneumoperitoneum was reduced and the upper trochars removed. Both incisions are closed with 4-0 Vicryl. Steri-Strips and sterile dressing is applied. Go down below and remove the Allis clamp and speculum and catheter. All counts are correct 3. There are no complications. Patient is awakened from anesthesia and taken recovery room satisfactory condition.
[2022-02-13 08:22] VITALS: TEMP 97.7
[2022-02-13] MEDS ORDERED: Acetaminophen-Codeine 300-30mg TAB PO ONE (09:26)
[2022-02-13 09:28] VITALS: RESP 16
[2022-02-13] MEDS ORDERED: Acetaminophen-Codeine 300-30mg TAB ONE (09:28)
[2022-02-13 09:32] VITALS: BP 126/72; PULSE 72
== END 2022-02-13 10:00 | disposition home or self-care (01) ==
LOC: OR 06:15
PROVIDERS: ATTEND Obstetrics & Gynecology
DX: Z30.2 Encounter for sterilization (principal); J45.909 Unspecified asthma, uncomplicated; K21.9 Gastro-esophageal reflux disease without esophagitis; Z86.19 Personal history of other infectious and parasitic diseases; Z90.49 Acquired absence of other specified parts of digestive tract; F41.9 Anxiety disorder, unspecified; F32.A Depression, unspecified; Z87.891 Personal history of nicotine dependence
CPT/HCPCS: 58670; 81025; J2250; J0330; J1100; J2710; J2405; J3010; J1170 ×2; J1885; J2704; J2001